=== PATIENT | male | born 1945 | race Caucasian/White ===

== ENCOUNTER 2016-12-07 06:15 | Observation (INO) | payer OTHER ==
[2016-12-07] MEDS ORDERED: NITROGLYCERIN 0.4 MG BTL SL ONE (06:35)
--- NOTE | 2016-12-07 06:46 | CPEKG ---
Heart Rate: 53 RR Interval: 1132 P-R Interval: 164 QRSD Interval: 96 QT Interval: 432 QTC Interval: 406 P [place]: 59 QRS [place]: -5 T Wave [place]: 9 EKG Severity - ABNORMAL ECG - EKG Impression: SINUS RHYTHM EKG Impression: INFERIOR INFARCT, AGE INDETERMINATE EKG Impression: CONSIDER POSTERIOR WALL INVOLVEMENT EKG Impression: Inferior T-wave inversions similar to previous Electronically Signed By: David Bell 07-Dec-2016 07:11:19
--- NOTE | 2016-12-07 06:52 | EDPHY ---
H & P Stated Complaint: CHEST PAIN WORRIED ABOUT STENT BLOCKING OFF. - Personal History Current Tetanus/Diphtheria Vaccine: Yes Current Tetanus Diphtheria and Acellular Pertussis (TDAP): Yes - Medical/Surgical History Hx Asthma: Yes Hx Chronic Respiratory Disease: No Hx Diabetes: No Hx Cardiac Disease: Yes Hx Renal Disease: No Hx Cirrhosis: No Hx Alcoholism: No Hx HIV/AIDS: No Hx Splenectomy or Spleen Trauma: No Other PMH: STENTS, M.I. 2003. TURP, HTN, - Social History Smoking Status: Never smoked Time Seen by Provider: 12/07/16 06:29 HPI/ROS: Chief complaint: Chest pain HPI: 71-year-old male with a history of coronary artery disease and hypertension presenting complaining of chest pain since yesterday afternoon. Patient has a history of IA in the past with stenting and has had stent occlusions as well. Patient states that this pain does feel similar to when he has had stent occlusion in the past but also feels similar to some his gastrointestinal pain that he has on occasion. At worst pain is been a 2/10. Right now he has no pain unless he moves. No shortness of breath. No nausea or vomiting. He did take some viscous lidocaine this morning about an hour and half prior to presentation with no relief. He has had some abdominal bloating. Last time he had symptoms like this for 4 5 years ago when he had septic lesions. He has been under the care Dr. Cui. ROS: 10 point Review of Systems is negative except as noted in the HPI. Social history: He has never smoked, drinks rare alcohol, uses rare marijuana Past medical history: IA Coronary artery disease Hypertension Irritable bowel Syndrome Hyperlipidemia low testosterone Medications: Zocor Carvedilol Lisinopril Aspirin testosterone Allergies: No known drug allergies Physical exam: Gen: Awake, Alert, No Distress HEENT: Nose: no rhinorrhea Eyes: PERRLA, EOMI Mouth: Moist mucosa Neck: Supple, no JVD Chest: nontender, lungs clear to auscultation Heart: S1, S2 normal, no murmur Abd: Soft, non-tender, no guarding Back: no CVA tenderness, no midline tenderness Ext: no edema, non-tender Skin: no rash Neuro: CN II-XII intact, Sensation grossly intact, Strength 5/5 in bilateral upper and lower extremities (Jacoby Vogel) Constitutional: Initial Vital Signs Temperature (C) 36.5 C 12/07/16 06:18 Heart Rate 58 L 12/07/16 06:18 Respiratory Rate 18 12/07/16 06:18 Blood Pressure 197/106 H 12/07/16 06:18 O2 Sat (%) 97 12/07/16 06:18 O2 Delivery Mode Room Air O2 (L/minute) 2 Allergies/Adverse Reactions: No Known Allergies Allergy (Unverified 12/07/16 06:22) Home Medications: Medication Instructions Recorded Aspirin [Aspirin 325 mg (OTC)] 325 mg PO DAILY 05/25/12 Carvedilol [Coreg (RX)] 12.5 mg PO BIDMEAL 05/25/12 Herbals/Supplements -Info Only 05/25/12 Lisinopril [Zestril 40 mg (*)] 40 mg PO DAILY 05/25/12 Pharmacist Completed 05-25-12 05/25/12 Testosterone Enanthate 60 mg IM BRADEN 05/25/12 Zolpidem Tartrate [Ambien 10 mg] 10 mg PO HS 05/25/12 Medical Decision Making - Diagnostics EKG Interpretation: EC sinus rhythm with bradycardia and rate of 53. Normal axis, he has Q- waves in leads to 3 and AVF consistent with an old anterior inferior infarct. No acute ST or T-wave changes. (Jacoby Vogel) ED Course/Re-evaluation: ECG is noted. I have signed the patient out to Dr. Bell pending troponin and other blood work results. (Jacoby Vogel) 7:30 a.m. patient's care is transferred to me by Dr. Vogel. On My evaluation the patient is chest pain free. we discussed his troponin, nonspecific EKG changes and risk factors. Recommended admission for further workup. The patient states that he would like to get a catheterization and that if he is not going to get a catheterization a prefer to go home. I will discuss this with [facility]. 7:45 a.m. I discussed the case with Dr. Mayelin Up. She will have her partners , and speak with the patient here in the emergency department about disposition. 9:[address] Ricks is here to evaluate the patient. 10:[address] Ricks has agreed to catheterize the patient. (David Bell) Differential Diagnosis: Partial list of the Differential diagnosis considered include but were not limited to; acute coronary disease, GERD, peptic ulcer disease, and although unlikely based on the history and physical exam, I also considered PE, pneumonia , pneumothorax, dissection, aneurysm. (David Bell) - Data Points Laboratory Results: Laboratory Results 12/07/16 06:38 12/07/16 06:38 12/07/16 12/07/16 06:38 06:38 WBC 9.46 10^3/uL 10^3/uL (3.80-9.50) RBC 5.33 10^6/uL 10^6/uL (4.40-6.38) Hgb 15.8 g/dL g/dL (13.7-17.5) Hct 46.0 % % (40.0-51.0) MCV 86.3 fL fL (81.5-99.8) MCH 29.6 pg pg (27.9-34.1) MCHC 34.3 g/dL g/dL (32.4-36.7) RDW 12.9 % % (11.5-15.2) Plt Count 189 10^3/uL 10^3/uL (150-400) MPV 10.0 fL fL (8.7-11.7) Neut % (Auto) 61.0 % % (39.3-74.2) Lymph % (Auto) 19.0 % % (15.0-45.0) [place] % (Auto) 6.9 % % (4.5-13.0) Eos % (Auto) 11.5 % H % (0.6-7.6) Baso % (Auto) 1.3 % % (0.3-1.7) Nucleat RBC Rel Count 0.0 % % (0.0-0.2) Absolute Neuts (auto) 5.77 10^3/uL 10^3/uL (1.70-6.50) Absolute Lymphs (auto) 1.80 10^3/uL 10^3/uL (1.00-3.00) Absolute Monos (auto) 0.65 10^3/uL 10^3/uL (0.30-0.80) Absolute Eos (auto) 1.09 10^3/uL H 10^3/uL (0.03-0.40) Absolute Basos (auto) 0.12 10^3/uL H 10^3/uL (0.02-0.10) Absolute Nucleated RBC 0.00 10^3/uL 10^3/uL (0-0.01) Immature Gran % 0.3 % % (0.0-1.1) Immature Gran # 0.03 10^3/uL 10^3/uL (0.00-0.10) Sodium 142 mEq/L mEq/L (134-144) Potassium 4.4 mEq/L mEq/L (3.5-5.2) Chloride 107 mEq/L mEq/L (97-110) Carbon Dioxide 25 mEq/l mEq/l (22-31) Anion Gap 10 mEq/L mEq/L (8-16) BUN 21 mg/dL mg/dL (7-23) Creatinine 1.1 mg/dL mg/dL (0.7-1.3) Estimated GFR > 60 Glucose 88 mg/dL mg/dL (70-100) Calcium 9.7 mg/dL mg/dL (8.5-10.4) Troponin I < 0.012 ng/mL ng/mL (0-0.034) Departure - Departure Disposition: [facility] Inpatient Acute Clinical Impression: Chest pain Qualifiers: Chest pain type: unspecified Qualified Code(s): R07.9 - Chest pain, unspecified Condition: Fair Referrals: BRANDIE BORJAS [Primary Care Provider] - As per Instructions
[2016-12-07 07:06] LABS: % IMMATURE GRANULYOCYTES 0.3 % (0.0-1.1); ABSOLUTE IMMATURE GRANULOCYTES 0.03 10^3/uL (0.00-0.10); ADD DIFF? NO; ADD MORPH? NO; ADD SCAN? NO; ATYPICAL LYMPHOCYTE FLAG 0 (0-99); FRAGMENT RBC FLAG 0 (0-99); HEMOGLOBIN 15.8 g/dL (13.7-17.5); LEFT SHIFT FLG 0 (0-99); LIPEMIA HEMOLYSIS FLAG 90 (0-99); MEAN CELL HEMOGLOBIN 29.6 pg (27.9-34.1); MEAN CELL HEMOGLOBIN CONCENTR. 34.3 g/dL (32.4-36.7); MEAN CELL VOLUME 86.3 fL (81.5-99.8); PLATELET CLUMPS FLAG 0 (0-99); PLATELET COUNT 189 10^3/uL (150-400); RED BLOOD CELL COUNT 5.33 10^6/uL (4.40-6.38); RED CELL DISTRIBUTION WIDTH 12.9 % (11.5-15.2)
[2016-12-07 07:10] LABS: ANION GAP 10 mEq/L (8-16); CALCIUM 9.7 mg/dL (8.5-10.4); CARBON DIOXIDE 25 mEq/l (22-31); CHLORIDE 107 mEq/L (97-110); CREATININE 1.1 mg/dL (0.7-1.3); GLOMERULAR FILTRATION RATE > 60; GLUCOSE 88 mg/dL (70-100); POTASSIUM 4.4 mEq/L (3.5-5.2); SODIUM 142 mEq/L (134-144)
[2016-12-07 07:21] LABS: TROPONIN I < 0.012 ng/mL (0-0.034)
[2016-12-07] MEDS ORDERED: NS 1,000 ML IV ONE (10:20)
[2016-12-07] MEDS ORDERED: LIDOCAINE 1% 30 ML SDV ONE (13:17)
[2016-12-07] MEDS ORDERED: fentaNYL 100 MCG/2 ML INJ ONE ×2 (13:18→14:43)
[2016-12-07] MEDS ORDERED: VERAPAMIL 5 MG/2 ML VIAL ONE (13:18)
[2016-12-07] MEDS ORDERED: MIDAZOLAM 2 MG/2 ML VIAL ONE (13:18)
[2016-12-07] MEDS ORDERED: HEPARIN 10,000 UNIT/10 ML MDV ONE (13:18)
[2016-12-07] MEDS ORDERED: BIVALIRUDIN 250 MG/5 ML VIAL IV ONE (14:19)
[2016-12-07] MEDS ORDERED: LABETALOL HCL 5 MG/ML 20 ML MDV ONE (14:54)
[2016-12-07] MEDS ORDERED: TICAGRELOR 90 MG TAB PO ONE ×2 (14:54→15:15)
[2016-12-07] MEDS ORDERED: ONDANSETRON 4 MG/2 ML VIAL IVP PRN (15:15)
[2016-12-07] MEDS ORDERED: ASPIRIN EC 325 MG TAB PO ONE (15:15)
[2016-12-07] MEDS ORDERED: HYDROCODONE/APAP 5/325 TAB PO PRN (15:15)
[2016-12-07] MEDS ORDERED: TEMAZEPAM 15 MG CAP PO PRN (15:15)
[2016-12-07] MEDS ORDERED: LORazepam 2 MG/ML INJ IVP PRN (15:15)
[2016-12-07] MEDS ORDERED: OXYCODONE/APAP 5/325 TAB PO PRN (15:15)
[2016-12-07] MEDS ORDERED: ATROPINE SULFATE 1 MG/10 ML SYR IVP PRN (15:15)
--- NOTE | 2016-12-07 15:52 | CPIP ---
[f rep st] INVASIVE CARDIAC PROCEDURE DATE OF PROCEDURE: 12/07/2016 PROCEDURE: 1. Coronary angiography. 2. Left ventriculography. 3. Stenting of circumflex coronary artery with Promus drug-eluting stent. INDICATION: Crescendo angina creating an acute coronary syndrome. ACCESS: Patient was prepped and draped in sterile fashion. 1% lidocaine was used to anesthetize th e right inguinal region. A 6-Nauruan introducer sheath was placed selectively into the right common femoral artery via modified Seldinger technique. CORONARY ANGIOGRAPHY: A 6-Nauruan JL4 was advanced to the left main coronary artery, and images obta ined. The left main coronary artery bifurcated into an LAD and circumflex coronary arteries. The l eft main coronary artery had mild luminal irregularities throughout. There was no stenosis greater than 10%. The left anterior descending coronary artery was diffusely diseased in the proximal and m id segments. In the proximal segment, there is a long segmental 30% stenosis present. In the proxi mal to mid segment, a previously placed stent can be seen. There is mild in-stent restenosis of the previously placed stent approaching 10% to 15%. The patient had multiple diagonal arteries coming off the left anterior descending coronary artery. There was no significant disease involving the di agonal arteries. The circumflex coronary artery is a large vessel, it was nondominant. Circumflex coronary artery is diffusely diseased in the proximal and mid segments. In the proximal segment, th ere is a long segmental 70% stenosis present. In the mid segment, there is a single discrete 85% st enosis present. There was VERO-3 flow. A 6-Nauruan JR4 was advanced to the right coronary artery, a nd images obtained. The right coronary artery was previously stented from the proximal to distal se gments. There was diffuse in-stent restenosis. In the mid segment, the degree of stenosis approach 50% in severity. LEFT VENTRICULOGRAPHY: A 6-Nauruan pigtail catheter was advanced in the left ventricle, and images o btained. Left ventricle is normal in size with reduced systolic function. Estimated ejection fract ion was 40% to 45%. The inferior wall is akinetic. PERCUTANEOUS CORONARY INTERVENTION OF THE CIRCUMFLEX CORONARY ARTERY: A 6-Nauruan EBU 3.75 was advan gurinder to the left main coronary artery, and images obtained. Angiography confirmed the presence of hi gh-grade disease involving the proximal mid circumflex coronary artery. A loose wire was placed in the distal vessel and position verified by angiography. A 2.5 x 15 Emerge balloon was used to pre-d ilate the lesion. Followup angiography demonstrated residual stenosis and VERO-3 flow. A 2.5 x 32 Synergy drug-eluting stent was then placed across the proximal and mid segments and deployed. Follo wup angiography demonstrated VERO-3 flow, incomplete stent expansion in the proximal portion of the stent. The proximal portion of the stent was post dilated with a 3.0 x 12 Quantum balloon. Followu p angiography demonstrated VERO-3 flow. No residual stenosis. COMPLICATIONS: None. CONCLUSIONS: 1. Patent left anterior descending stent with mild in-stent restenosis. 2. Patent RCA stents with moderate in-stent restenosis approaching 50% severity. 3. 85% stenosis of the circumflex coronary artery. 4. Reduced left ventricular systolic function with an estimated ejection fraction of 40% to 45% and inferior akinesis. 5. Status post successful percutaneous coronary intervention of the circumflex coronary artery erickson Mckeon drug-eluting stent. /[id number]/MODL
--- NOTE | 2016-12-07 16:00 | CPEKG ---
Heart Rate: 57 RR Interval: 1053 P-R Interval: 160 QRSD Interval: 96 QT Interval: 464 QTC Interval: 452 P [place]: 63 QRS [place]: -8 T Wave [place]: -40 EKG Severity - ABNORMAL ECG - EKG Impression: SINUS RHYTHM EKG Impression: LEFT VENTRICULAR HYPERTROPHY EKG Impression: INFERIOR INFARCT, AGE INDETERMINATE EKG Impression: CONSIDER POSTERIOR WALL INVOLVEMENT Electronically Signed By: Ke Zhang 08-Dec-2016 14:14:16
--- NOTE | 2016-12-07 16:07 | GHP ---
[f rep st] HISTORY AND PHYSICAL DATE OF ADMISSION: 12/07/2016 CHIEF COMPLAINT: We have been asked by Dr. Bell to evaluate this patient with a chief complaint of chest pain. HISTORY OF PRESENT ILLNESS: The patient is a 71-year-old gentleman with known coronary artery disease, who presents to the emergency department with a chief complaint of chest pain. The patient was in his usual state of health until approximately 2 weeks prior to admission when he began to experience symptoms of increased dyspnea on exertion. This was followed by the development of chest discomfort as well as epigastric discomfort, which reminded him of his previous anginal symptoms. The chest discomfort was not clearly associated with exertion. The chest discomfort was not associated with nausea, vomiting, or diaphoresis. When his chest discomfort became quite significant, he presented to the emergency department for further evaluation. In the emergency department, he had an EKG performed demonstrating an old inferior myocardial infarction with no acute ST changes. His initial troponin was within normal limits. We have been consulted to help in the further management of this patient. The patient does have a previous history of coronary artery disease. In 2003, he had an inferior myocardial infarction while sailing to the [facility] [place]. The patient managed himself on the boat for 3 days before he could be airlifted to a medical facility with PCI capability. At that time, he underwent percutaneous coronary intervention of his right coronary artery. This was followed by staged percutaneous coronary intervention of his left anterior descending coronary artery. Since this time, the patient has undergone 2 subsequent interventions of his right coronary artery secondary to in-stent restenosis. The patient also has a history of hypertension, managed with carvedilol and lisinopril. The patient also has a history of hyperlipidemia. He has been reluctant to take full dose statins secondary to his literature searches. He is currently taking 5 mg of Zocor in the evening. PAST MEDICAL HISTORY: 1. Coronary artery disease. 2. Hypertension. 3. Hyperlipidemia. MEDICATIONS: 1. Aspirin. 2. Carvedilol. 3. Lisinopril. 4. Simvastatin. 5. Fish oil. 6. Testosterone. ALLERGIES: No known drug allergies. SOCIAL HISTORY: The patient is a retired orthopedic surgeon. He previously enjoyed sailing around the world. FAMILY HISTORY: Noncontributory. REVIEW OF SYSTEMS: A 10-point review of systems is negative, except as noted in the HPI. The patient also does report some intestinal symptoms, including abdominal distention and flatus. PHYSICAL EXAMINATION: GENERAL: The patient is resting comfortably in bed at this time. He does not appear to be in acute distress. VITAL SIGNS: Temperature is afebrile, pulse is 57, blood pressure 170/101, respiratory rate is 14, SaO2 is 94% on room air. HEENT: Normocephalic, atraumatic. Extraocular muscles intact. NECK: No JVD. No bruits. LUNGS: Clear to auscultation bilaterally. CARDIOVASCULAR: Regular rate and rhythm. S1, S2. No murmurs, rubs, or gallops appreciated. ABDOMEN: Soft, nontender. Normoactive bowel sounds. No hepatosplenomegaly. No bruits auscultated. EXTREMITIES: No clubbing, cyanosis, or edema. NEURO: The patient is awake, alert, and oriented x3. LABORATORY: White blood cell count is 9.46, hemoglobin 15.8, hematocrit is 46.0 , platelet count 189. Sodium 142, potassium 4.4, chloride 107, CO2 was 25, BUN 21, creatinine 1.1. Troponin less than 0.012. IMAGING: EKG demonstrates sinus rhythm, inferior myocardial infarction old, nonspecific ST and T-wave changes. ASSESSMENT AND PLAN: The patient is a 71-year-old gentleman with known coronary artery disease status post previous percutaneous coronary intervention of his right coronary artery and left anterior descending coronary artery, who presents with a 2-week history of increasing chest pain symptoms concerning for his typical angina. Reviewed options for risk stratification, including admitting the patient for rule out myocardial infarction with subsequent stress testing. Also discussed an early invasive strategy with cardiac catheterization. The patient wishes to pursue an early invasive strategy at this time. Risks and benefits of cardiac catheterization were discussed with the patient. In addition, a long discussion was held with the patient regarding the use of drug-eluting stents as well as non drug-eluting stents to manage his coronary artery disease, given his history of in-stent restenosis and previous ADR to Plavix. The patient is willing to undergo percutaneous coronary intervention with a drug-eluting stent if necessary, given he may tolerate Effient or Brilinta better than Plavix dosing. /[id number]/MODL MTDD
[2016-12-07] MEDS ORDERED: LORazepam 1 MG TAB PO PRN (17:00)
[2016-12-07] MEDS ORDERED: CARVEDILOL 6.25 MG TAB PO SCH (18:00)
[2016-12-07] MEDS ORDERED: NON-FORMULARY NEW DRUG (Carvedilol [Coreg] 12.5 MG) PO SCH (18:00)
[2016-12-07] MEDS: ZOLPIDEM TARTRATE 5 MG TAB PO PRN ×2 (22:13→23:30)
[2016-12-08 06:44] LABS: % IMMATURE GRANULYOCYTES 0.4 % (0.0-1.1); ABSOLUTE IMMATURE GRANULOCYTES 0.04 10^3/uL (0.00-0.10); ADD DIFF? NO; ADD MORPH? NO; ADD SCAN? NO; ATYPICAL LYMPHOCYTE FLAG 10 (0-99); FRAGMENT RBC FLAG 0 (0-99); HEMATOCRIT 41.9 % (40.0-51.0); HEMOGLOBIN 14.5 g/dL (13.7-17.5); LEFT SHIFT FLG 0 (0-99); LIPEMIA HEMOLYSIS FLAG 90 (0-99); MEAN CELL HEMOGLOBIN 30.1 pg (27.9-34.1); MEAN CELL HEMOGLOBIN CONCENTR. 34.6 g/dL (32.4-36.7); MEAN CELL VOLUME 86.9 fL (81.5-99.8); MEAN PLATELET VOLUME 9.9 fL (8.7-11.7); PLATELET CLUMPS FLAG 0 (0-99); PLATELET COUNT 152 10^3/uL (150-400); RED BLOOD CELL COUNT 4.82 10^6/uL (4.40-6.38); RED CELL DISTRIBUTION WIDTH 12.9 % (11.5-15.2)
[2016-12-08 07:06] LABS: ANION GAP 10 mEq/L (8-16); CALCIUM 9.2 mg/dL (8.5-10.4); CARBON DIOXIDE 23 mEq/l (22-31); CHLORIDE 109 mEq/L (97-110); CHOLESTEROL 190 mg/dL (140-220); GLOMERULAR FILTRATION RATE > 60; GLUCOSE 88 mg/dL (70-100); HIGH DENSITY LIPOPROTEIN 38 mg/dL (40-65); LDL/HDL RATIO 3.63 RATIO (1.00-3.64); LOW DENSITY LIPOPROTEIN 138 mg/dL (80-100); NON-HIGH DENSITY LIPOPROTEIN 152 mg/dL (90-129); SODIUM 142 mEq/L (134-144); TRIGLYCERIDE 73 mg/dL (40-150); VERY LOW DENSITY LIPOPROTEINS 14 mg/dL (8-25)
[2016-12-08 07:37] VITALS: BP 146/85; PULSE 68; RESP 18; TEMP 97.9; O2SAT 94
[2016-12-08] MEDS ORDERED: CARVEDILOL 6.25 MG PO SCH (08:00)
[2016-12-08] MEDS ORDERED: CARVEDILOL 6.25 MG TAB PO SCH (08:00)
[2016-12-08] MEDS ORDERED: TICAGRELOR 90 MG TAB PO SCH (09:00)
[2016-12-08] MEDS ORDERED: ASPIRIN EC 81 MG TAB PO SCH (09:00)
[2016-12-08] MEDS ORDERED: LISINOPRIL 40 MG TAB PO SCH (09:00)
[2016-12-08] MEDS ORDERED: SIMVASTATIN 2.5 MG PO SCH ×2 (09:00)
[2016-12-08] MEDS ORDERED: OMEGA-3 FATTY ACIDS 1,000 MG CAP PO SCH (09:00)
[2016-12-08] MEDS ORDERED: CHOLECALCIFEROL VIT D3 1,000 UNITS TAB PO SCH (09:00)
[2016-12-08] MEDS ORDERED: VITAMIN B COMPLEX 1 EA CAP/TAB PO SCH (09:00)
[2016-12-08] MEDS ORDERED: PRAVASTATIN SODIUM 10 MG TAB PO SCH (09:00)
--- NOTE | 2016-12-08 09:08 | CPEKG ---
Heart Rate: 57 RR Interval: 1053 P-R Interval: 152 QRSD Interval: 98 QT Interval: 452 QTC Interval: 440 P [place]: 69 QRS [place]: 15 T Wave [place]: -11 EKG Severity - ABNORMAL ECG - EKG Impression: SINUS RHYTHM EKG Impression: INFERIOR INFARCT, AGE INDETERMINATE EKG Impression: PROBABLE POSTERIOR INFARCT EKG Impression: REPOL ABNRM SUGGESTS ISCHEMIA, DIFFUSE LEADS Electronically Signed By: Ke Zhang 10-Dec-2016 12:12:21
--- NOTE | 2016-12-08 09:28 | GDS ---
[f rep st] DISCHARGE SUMMARY DISCHARGE DIAGNOSES: 1. Acute coronary syndrome. The patient is a 71-year-old gentleman with known coronary artery dise ase who presented to the emergency department on 12/07/2016 with a several week history of crescendo anginal type symptoms. He was taken to the cardiac catheterization laboratory for risk stratificat ion. Coronary angiography demonstrated patent LAD stent with mild in-stent restenosis. Patent RCA stents with moderate in-stent restenosis approaching 50% severity as well as a de ghada 85% lesion in volving the circumflex coronary artery. The patient was treated with percutaneous coronary interven tion of the circumflex coronary artery using a Synergy drug-eluting stent. There was no residual st enosis and patient had VERO-3 flow post procedure. The patient will be managed medically with aspir in, Brilinta, Coreg, lisinopril and simvastatin for his coronary artery disease. 2. Hyperlipidemia. The patient has a history of hyperlipidemia. His LDL cholesterol was 138 on 5 mg of simvastatin. Discussed risk and benefits of increasing statin therapy to achieve an LDL less than 70. The patient will think about these. 3. Hypertension. The patient has a history of hypertension, he has been managed with Coreg and lis inopril. He reports occasional cough while on lisinopril. We will consider switching to losartan 5 0 mg daily and up-titrating to 100 mg daily if blood pressure is not optimally controlled. SUMMARY OF PRESENTATION AND COURSE: The patient is a 71-year-old gentleman with known coronary areli ry disease status post previous percutaneous coronary intervention of the left anterior descending c oronary artery and right coronary artery, who presented to the emergency department on 12/07/2016 wi th a 2-week history of chest discomfort, concerning for crescendo anginal type symptoms. His EKG de monstrated an old inferior myocardial infarction with no acute ST or T-wave changes. His initial tr oponin was within normal limits. Discussed options for risk stratification including medical manage ment and stress testing as well as an early invasive strategy with cardiac catheterization. Patient wished to pursue cardiac catheterization. He was taken to the cardiac catheterization laboratory f or risk stratification. Coronary angiography is notable for a patent LAD stent with mild in-stent r estenosis. Patent RCA stents with moderate in-stent restenosis but no significant flow limitation a nd de ghada 85% stenosis in the circumflex coronary artery. The patient was treated with a Synergy d rug-eluting stent to the circumflex coronary artery taken to 3 mm. The patient's postprocedural course was uncomplicated. At the time of discharge, he is ambulating w ithout difficulty and denied symptoms of angina. PHYSICAL EXAMINATION: At the time of discharge. GENERAL: The patient is resting comfortably in be d. He did not appear to be in acute distress. VITAL SIGNS: Temperature is afebrile, pulse is 53, blood pressure 145/76, SaO2 is 93% on room air. HEENT: Normocephalic, atraumatic. Extraocular mus cles intact. LUNGS: Clear to auscultation bilaterally. CARDIOVASCULAR: Regular rate and rhythm S 1, S2. Grade 2/6 systolic ejection murmur is noted at the left sternal border. ABDOMEN: Soft, non tender. Normoactive bowel sounds. Right inguinal access site. No hematoma. No ecchymosis. 2+ do rsalis pedis pulse. NEURO: Patient awake, alert, and oriented x3. LABORATORY: At the time of discharge, sodium 142, potassium 4.0, chloride 109, CO2 23, BUN 18, crea tinine 1.0. White blood cell count 10.45, hemoglobin 14.5, hematocrit 41.9, platelet count 152. ARRANGEMENTS FOR FOLLOWUP CARE: Patient should follow up with [facility] in approximately 1-2 we eks' period of time for postprocedural groin check. DISCHARGE MEDICATIONS: Please see medicine reconciliation form. Patient will be continued on his h ome medications. However, Brilinta will be added as an anti-platelet agent. The patient's aspirin dose will be reduced from 325 to 81 mg daily secondary to Brilinta use. /[id number]/MODL
== END 2016-12-08 11:10 | disposition home or self-care (01) ==
LOC: F2W 16:33
PROVIDERS: ADMIT Internal Medicine Cardiovascular Disease; ATTEND Internal Medicine Cardiovascular Disease
PROC: B2151ZZ Fluoroscopy of Left Heart using Low Osmolar Contrast (ICD-10-PCS; principal; 2016-12-07)
PROC: 4A023N7 Measurement of Cardiac Sampling and Pressure, Left Heart, Percutaneous Approach (ICD-10-PCS; principal; 2016-12-07)
PROC: B2111ZZ Fluoroscopy of Multiple Coronary Arteries using Low Osmolar Contrast (ICD-10-PCS; principal; 2016-12-07)
DX: T82.857A Stenosis of other cardiac prosthetic devices, implants and grafts, initial encounter (principal); I25.118 Atherosclerotic heart disease of native coronary artery with other forms of angina pectoris; I10 Essential (primary) hypertension; E78.5 Hyperlipidemia, unspecified; I25.2 Old myocardial infarction
CPT/HCPCS: 93005; 93458; 96360; 99285; C1725; C1760; C1769; C1874; C1887; C9600; G0378; J0583; J1644; J2250; J2405; J3010; J3490; 84402-90

== ENCOUNTER 2017-08-07 07:38 | Emergency (ER) | payer OTHER ==
[2017-08-07 07:47] VITALS: BP 136/90
--- NOTE | 2017-08-07 09:00 | EDPHY ---
H & P Stated Complaint: headache for 5 days, stiff neck, photophobia. Guy Monday Time Seen by Provider: 08/07/17 07:49 HPI/ROS: Chief Complaint: Headache, fever HPI: 72-year-old male who 5 days ago developed onset of fatigue, facial headaches, photophobia, body pain and stiffness. This is proceeded for 3-4 weeks by a symptoms of a chest cold with increasing clear nasal mucus. Patient had increasing headache and was seen at the [facility] 3 days ago. There they performed a CBC which was normal, negative flu. He had a CT scan of the head which showed sinusitis. Patient was put on Augmentin 875 twice a day. He had been taking amoxicillin for 2 days prior to that. Patient has had persistent pain in the left side of his face around his orbit for the last 2 days. This morning when he got up pain was worse, it was an 8/10. He did take some Naprosyn. Pain is now improved down to a 4 on 10. No nausea or vomiting. No chest pain or shortness of breath. He does have a mild cough productive of whitish sputum. No abdominal pain. No subjective fevers or chills. ROS: 10 point Review of Systems is negative except as noted in the HPI. PMH: Coronary artery disease, benign prostate hypertrophy Social History: No smoking, occasional alcohol, occasional marijuana Family History: non-contributory Physical Exam: Gen: Awake, Alert, No Distress HEENT: Face: He does have some tenderness to the left maxillary and frontal sinus, minimal Nose: Clear rhinorrhea Eyes: PERRLA, EOMI Mouth: Moist mucosa Neck: Supple, no JVD Chest: nontender, lungs clear to auscultation Heart: S1, S2 normal, no murmur Abd: Soft, non-tender, no guarding Back: no CVA tenderness, no midline tenderness Ext: no edema, non-tender Skin: no rash Neuro: CN II-XII intact, Sensation grossly intact, Strength 5/5 in bilateral upper and lower extremities - Personal History Current Tetanus/Diphtheria Vaccine: Yes - Medical/Surgical History Hx Asthma: Yes Hx Chronic Respiratory Disease: No Hx Diabetes: No Hx Cardiac Disease: Yes Hx Renal Disease: No Hx Cirrhosis: No Hx Alcoholism: No Hx HIV/AIDS: No Hx Splenectomy or Spleen Trauma: No Other PMH: 7 cardiac catheterizations, STENTS, M.I. in 2003, angioplasty RCA, 2006 occlusion of RCA stent, 2012 stenosis of RCA stent and 4 stents. TURP 2007 , HTN, IBS ? - Social History Smoking Status: Never smoked Constitutional: Initial Vital Signs Temperature (C) 37.1 C 08/07/17 07:41 Heart Rate 88 08/07/17 07:41 Respiratory Rate 16 08/07/17 07:41 Blood Pressure 136/90 H 08/07/17 07:41 O2 Sat (%) 95 08/07/17 07:41 O2 Delivery Mode Room Air Allergies/Adverse Reactions: No Known Allergies Allergy (Unverified 12/07/16 06:22) Home Medications: Medication Instructions Recorded Lisinopril [Zestril 40 mg (*)] 40 mg PO DAILY 05/25/12 Carvedilol [Coreg] 6.25 mg PO DAILY@08 12/07/16 Carvedilol [Coreg] 12.5 mg PO DAILY18 12/07/16 Cholecalciferol Vit D3 [Vitamin D3 1,000 units PO DAILY 12/07/16 (*)] LORazepam [Ativan 2 mg tab] 0.5 - 1 mg PO DAILY PRN 12/07/16 Adams-3 Fatty Acids [Fish Oil 1000 1,000 mg PO DAILY 12/07/16 mg (*)] Ranitidine HCl [Zantac 75] 75 mg PO DAILY PRN 12/07/16 Simvastatin [Zocor] 2.5 mg PO DAILY 12/07/16 Testosterone Cypionate 30 mg IM MO 12/07/16 Vitamin B Complex [B Complex] 1 each PO DAILY 12/07/16 Zolpidem Tartrate [Ambien 5MG (*)] 5 mg PO HS PRN 12/07/16 Aspirin EC [Aspirin EC 81 mg (*)] 81 mg PO DAILY #0 tab 12/08/16 Ticagrelor [Brilinta] 90 mg PO BID #60 tab 12/08/16 Hydrocodone/Acetaminophen 1 - 2 each PO Q4-6PRN PRN #15 08/07/17 [Hydrocodon-Acetaminophen 5-325] tablet Medical Decision Making - Diagnostics Imaging Results: Imaging Impressions Chest X-Ray 08/07/17 08:20 Impression: Coronary artery disease. Nothing acute identified. - Data Points Laboratory Results: Laboratory Results 08/07/17 09:10 08/07/17 09:10 08/07/17 08/07/17 09:10 09:10 WBC 6.96 10^3/uL 10^3/uL (3.80-9.50) RBC 4.79 10^6/uL 10^6/uL (4.40-6.38) Hgb 14.5 g/dL g/dL (13.7-17.5) Hct 41.8 % % (40.0-51.0) MCV 87.3 fL fL (81.5-99.8) MCH 30.3 pg pg (27.9-34.1) MCHC 34.7 g/dL g/dL (32.4-36.7) RDW 12.7 % % (11.5-15.2) Plt Count 149 10^3/uL L 10^3/uL (150-400) MPV 10.0 fL fL (8.7-11.7) Neut % (Auto) 73.4 % % (39.3-74.2) Lymph % (Auto) 13.8 % L % (15.0-45.0) Bacon % (Auto) 7.6 % % (4.5-13.0) Eos % (Auto) 4.3 % % (0.6-7.6) Baso % (Auto) 0.6 % % (0.3-1.7) Nucleat RBC Rel Count 0.0 % % (0.0-0.2) Absolute Neuts (auto) 5.11 10^3/uL 10^3/uL (1.70-6.50) Absolute Lymphs (auto) 0.96 10^3/uL L 10^3/uL (1.00-3.00) Absolute Monos (auto) 0.53 10^3/uL 10^3/uL (0.30-0.80) Absolute Eos (auto) 0.30 10^3/uL 10^3/uL (0.03-0.40) Absolute Basos (auto) 0.04 10^3/uL 10^3/uL (0.02-0.10) Absolute Nucleated RBC 0.00 10^3/uL 10^3/uL (0-0.01) Immature Gran % 0.3 % % (0.0-1.1) Immature Gran # 0.02 10^3/uL 10^3/uL (0.00-0.10) Sodium 137 mEq/L mEq/L (134-144) Potassium 3.9 mEq/L mEq/L (3.5-5.2) Chloride 98 mEq/L mEq/L (97-110) Carbon Dioxide 29 mEq/l mEq/l (22-31) Anion Gap 10 mEq/L mEq/L (8-16) BUN 13 mg/dL mg/dL (7-23) Creatinine 1.0 mg/dL mg/dL (0.7-1.3) Estimated GFR > 60 Glucose 99 mg/dL mg/dL (70-100) Calcium 9.0 mg/dL mg/dL (8.5-10.4) Departure - Departure Disposition: Home, Routine, Self-Care Clinical Impression: Sinusitis Condition: Good Instructions: Sinusitis (ED) Additional Instructions: Follow up with Ear Nose and Throat physician in 2-3 days. Return to the emergency department for increasing headache, worsening stiffness of your neck. Fevers, chills, nausea, vomiting, or any other concerns. You may use Afrin nasal spray as a decongestant for 3 days only. You may do saline nasal rinses twice a day. Continue taking your Augmentin. Referrals: Mary Cordova MD [Primary Care Provider] - As per Instructions Rafa Zaldivar MD [Medical Doctor] - As per Instructions Prescriptions: Hydrocodone/Acetaminophen [Hydrocodon-Acetaminophen 5-325] 1 - 2 each PO Q4- 6PRN PRN #15 tablet PRN Reason: Pain, Severe
[2017-08-07 09:20] LABS: % IMMATURE GRANULYOCYTES 0.3 % (0.0-1.1); ABSOLUTE IMMATURE GRANULOCYTES 0.02 10^3/uL (0.00-0.10); ADD DIFF? NO; ADD MORPH? NO; ADD SCAN? NO; ATYPICAL LYMPHOCYTE FLAG 0 (0-99); FRAGMENT RBC FLAG 0 (0-99); HEMATOCRIT 41.8 % (40.0-51.0); HEMOGLOBIN 14.5 g/dL (13.7-17.5); LEFT SHIFT FLG 0 (0-99); LIPEMIA HEMOLYSIS FLAG 90 (0-99); MEAN CELL HEMOGLOBIN 30.3 pg (27.9-34.1); MEAN CELL HEMOGLOBIN CONCENTR. 34.7 g/dL (32.4-36.7); MEAN CELL VOLUME 87.3 fL (81.5-99.8); PLATELET CLUMPS FLAG 10 (0-99); PLATELET COUNT 149 10^3/uL (150-400); RED BLOOD CELL COUNT 4.79 10^6/uL (4.40-6.38); RED CELL DISTRIBUTION WIDTH 12.7 % (11.5-15.2)
[2017-08-07 09:36] LABS: ANION GAP 10 mEq/L (8-16); CARBON DIOXIDE 29 mEq/l (22-31); CHLORIDE 98 mEq/L (97-110); GLOMERULAR FILTRATION RATE > 60; GLUCOSE 99 mg/dL (70-100); POTASSIUM 3.9 mEq/L (3.5-5.2); SODIUM 137 mEq/L (134-144)
[2017-08-07 10:37] VITALS: PULSE 69; RESP 18; TEMP 98.6; O2SAT 98
== END 2017-08-07 10:31 | disposition home or self-care (01) ==
DX: J32.0 Chronic maxillary sinusitis (principal); J32.1 Chronic frontal sinusitis; I25.10 Atherosclerotic heart disease of native coronary artery without angina pectoris; J45.909 Unspecified asthma, uncomplicated; I25.2 Old myocardial infarction; I10 Essential (primary) hypertension; Z79.82 Long term (current) use of aspirin

== ENCOUNTER → 2018-02-21 | Outpatient (CLI) | payer OTHER, MEDICARE | LOC: BHCLAF 13:00 | PROVIDERS: ATTEND Internal Medicine Cardiovascular Disease | DX: I42.9 Cardiomyopathy, unspecified (principal); R06.00 Dyspnea, unspecified; I10 Essential (primary) hypertension; E78.5 Hyperlipidemia, unspecified | CPT/HCPCS: 93005-PO ==

== ENCOUNTER → 2018-03-19 | Outpatient (CLI) | payer OTHER, MEDICARE | LOC: BHLMT 08:30 | PROVIDERS: ATTEND Internal Medicine Cardiovascular Disease | DX: I25.10 Atherosclerotic heart disease of native coronary artery without angina pectoris (principal) | CPT/HCPCS: 93306-PO ==

== ENCOUNTER → 2018-06-07 | Outpatient (CLI) | payer OTHER, MEDICARE | LOC: BMCIMAGING 12:21 | PROVIDERS: ATTEND Internal Medicine | DX: R05 Cough (principal); R06.02 Shortness of breath ==